=== PATIENT | female | born 1995 | race Caucasian/White ===

== ENCOUNTER 2022-10-23 13:22 | Inpatient (IN) ==
[2022-10-23] MEDS ORDERED: MEPERIDINE 50 MG/1 ML VIAL IV PRN (13:54)
[2022-10-23] MEDS ORDERED: BUTORPHANOL 2 MG/ML VIAL IV PRN (13:54)
[2022-10-23] MEDS ORDERED: TRANEXAMIC ACID 1,000 MG in SODIUM CHLORIDE 0.9% 100 ML IV PRN (13:54)
[2022-10-23] MEDS ORDERED: miSOPROStoL 200 MCG TABLET RECTAL PRN (13:54)
[2022-10-23] MEDS ORDERED: OXYTOCIN/LR 20 UNIT/1,000 ML BAG IV ONE ×3 (13:54→22:33)
[2022-10-23] MEDS ORDERED: CARBOPROST TROMETHAMINE 250 MCG/ML AMP IM PRN (13:54)
[2022-10-23] MEDS ORDERED: METHYLERGONOVINE 0.2 MG/1 ML AMP IM PRN (13:54)
[2022-10-23] MEDS ORDERED: ONDANSETRON 4 MG/2 ML VIAL IV PRN (13:54)
[2022-10-23] MEDS ORDERED: CITRIC ACID/SODIUM CITRATE 30 ML UDCUP PO ONE (13:56)
[2022-10-23] MEDS ORDERED: FAMOTIDINE 20 MG/2 ML VIAL IV ONE (13:56)
[2022-10-23] MEDS ORDERED: ONDANSETRON 4 MG/2 ML VIAL IV ONE (13:56)
[2022-10-23] MEDS ORDERED: NALOXONE 0.4 MG/ML VIAL IV PRN (13:56)
[2022-10-23] MEDS ORDERED: diphenhydrAMINE 50 MG/1 ML VIAL IV PRN ×2 (13:56)
[2022-10-23] MEDS ORDERED: ePHEDrine 50 MG/ML VIAL IV PRN (13:56)
[2022-10-23] MEDS ORDERED: OXYTOCIN/LR 20 UNIT/1,000 ML BAG IV SCH (14:00)
[2022-10-23] MEDS ORDERED: fentaNYL 2 MCG/ROPIV 0.2% EPID 100 ML EPIDURAL SCH (14:00)
[2022-10-23 14:09] LABS: Basophils % 0.2 % (0.0-0.8); Eosinophils # 0.1 10*3/uL (0.0-0.87); Hemoglobin 11.7 GM/DL (12.0-16.0); Immature Granulocytes % 0.7 %; Immature Granulocytes Absolute 0.08 #; Lymphocytes # 1.8 10*3/uL (1.4-4.0); Lymphocytes % 16.1 % (21.3-54.2); Mean Corpuscular HGB Conc 34.4 GM/DL (32-36); Mean Corpuscular Volume 80.2 FL (87-102); Mean Platelet Volume 11.6 FL (9.6-12.0); Monocytes # 0.6 10*3/uL (0.11-0.8); Platelet Count 258 T/CUMM (130-400); Red Blood Count 4.24 MC/CUMM (3.8-5.5); Red Cell Distribution Width 13.5 % (9.3-17.3); White Blood Count 11.4 T/CUMM (4-12)
[2022-10-23 14:34] LABS: Albumin 2.8 G/DL (3.4-5.0); Bilirubin,Total 0.5 MG/DL (0.20-1.00); Calcium 8.8 MG/DL (8.5-10.1); Osmolality,Calculated 269.8 MOS/KG (273-304); Potassium 4.1 MMOL/L (3.5-5.1); Total Protein 7.1 G/DL (6.4-8.2)
[2022-10-23] MEDS: LACTATED RINGERS 1,000 ML IV SCH ×2 (14:34→16:34)
[2022-10-23 15:49] LABS: Bacteria,Urine Occasional /HPF (Few); Mucus,Urine Occasional /LPF (Occasional); Protein,Urine Negative (Negative); RBC,Urine <1 /HPF (0-4); Squamous Epithelial Cell,Urine Occasional /HPF (0-10); Urine Appearance Clear (Clear); Urine Color Light Yellow (Yellow); Urine Specific Gravity 1.015 (1.001-1.035)
[2022-10-23 15:50] LABS: Bilirubin,Urine Negative (Negative); Blood, Urine Negative (Negative); Glucose,Urine (UA) Negative (Negative); Ketones,Urine Negative (Negative); Nitrite,Urine Negative (Negative); Urine Urobilinogen 0.2 eU/dL (<2.0)
[2022-10-23] MEDS ORDERED: SODIUM CHLORIDE 0.9% 0 ML IV ONE (18:48)
[2022-10-23] MEDS ORDERED: TRANEXAMIC ACID 1,000 MG/10 ML VIAL ONE (18:48)
[2022-10-23] MEDS ORDERED: miSOPROStoL 200 MCG TABLET ONE (18:48)
[2022-10-23] MEDS ORDERED: CARBOPROST TROMETHAMINE 250 MCG/ML AMP IM ONE (18:49)
[2022-10-23] MEDS ORDERED: METHYLERGONOVINE 0.2 MG/1 ML AMP ONE (18:49)
[2022-10-23 19:20] LABS: Cord Arterial Blood HCO3 19.5 MMOL/L
[2022-10-23 19:23] LABS: Cord Venous Blood HCO3 22.3 MMOL/L; Cord Venous Blood PCO2 44.5 MMHG; Cord Venous Blood PO2 26.3
[2022-10-23] MEDS ORDERED: MEASLES/MUMPS/RUBELLA VACCINE 0.5 ML VIAL SUBCUT ONE (22:33)
[2022-10-23] MEDS ORDERED: WITCH HAZEL PADS 100/JAR TOP PRN (22:33)
[2022-10-23] MEDS ORDERED: LANOLIN 50% CREAM 0.3 OZ TUBE TOP PRN (22:33)
[2022-10-23] MEDS ORDERED: BISACODYL 10 MG SUPP RECTAL PRN (22:33)
[2022-10-23] MEDS ORDERED: oxyCODONE/ACETAMINOPHEN 5-325 MG TABLET PO PRN ×2 (22:33)
[2022-10-23] MEDS ORDERED: RHO(D) IMMUNE GLOBULIN 300 MCG SYRINGE IM ONE (22:33)
[2022-10-23] MEDS ORDERED: HYDROCORTISONE 2.5% RECTAL CREAM 30 GM TUBE TOP PRN (22:33)
[2022-10-23] MEDS ORDERED: ACETAMINOPHEN 325 MG TABLET PO PRN (22:33)
[2022-10-23] MEDS ORDERED: DIPH/TET/ACEL PERT BOOSTER VACCINE 0.5 ML VIAL IM ONE (22:33)
[2022-10-23] MEDS ORDERED: BENZOCAINE 20%/MENTHOL 0.5% SPRAY 56 GM CAN TOP PRN (22:33)
[2022-10-23] MEDS: DOCUSATE SODIUM 100 MG CAPSULE PO SCH (23:00)
[2022-10-24] MEDS: IBUPROFEN 800 MG TABLET PO PRN ×2 (02:08→14:48)
[2022-10-24 05:29] LABS: Basophils % 0.2 % (0.0-0.8); Eosinophils # 0.1 10*3/uL (0.0-0.87); Eosinophils % 0.5 % (0.00-10.9); Hemoglobin 10.8 GM/DL (12.0-16.0); Immature Granulocytes % 0.8 %; Immature Granulocytes Absolute 0.14 #; Lymphocytes # 2.5 10*3/uL (1.4-4.0); Lymphocytes % 14.4 % (21.3-54.2); Mean Corpuscular HGB Conc 32.7 GM/DL (32-36); Mean Corpuscular Volume 82.3 FL (87-102); Mean Platelet Volume 12.4 FL (9.6-12.0); Monocytes # 1.1 10*3/uL (0.11-0.8); Monocytes % 6.5 % (1.7-12.7); Neutrophils % 77.6 % (38.7-73.9); Platelet Count 254 T/CUMM (130-400); Red Blood Count 4.01 MC/CUMM (3.8-5.5); Red Cell Distribution Width 13.3 % (9.3-17.3); White Blood Count 17.2 T/CUMM (4-12)
[2022-10-24] MEDS: DOCUSATE SODIUM 100 MG CAPSULE PO SCH ×2 (08:52→22:15)
[2022-10-25 07:27] VITALS: BP 143/82
[2022-10-25] MEDS: DOCUSATE SODIUM 100 MG CAPSULE PO SCH (08:54)
== END 2022-10-25 10:05 | disposition home or self-care (01) | DRG 807 ==
LOC: N.LDOUT 13:22 → N.LD 13:23 → N.OB 22:20
PROVIDERS: ADMIT Obstetrics & Gynecology; ATTEND Obstetrics & Gynecology

== ENCOUNTER 2022-12-06 09:56 | Observation (INO) ==
[2022-12-06] MEDS ORDERED: ONDANSETRON 4 MG/2 ML VIAL IV STA (10:21)
[2022-12-06] MEDS ORDERED: SODIUM CHLORIDE 0.9% 1,000 ML IV STA (10:21)
[2022-12-06 10:34] LABS: Basophils % 0.2 % (0.0-0.8); Eosinophils # 0.2 10*3/uL (0.0-0.87); Eosinophils % 1.5 % (0.00-10.9); Hematocrit 37.9 VOL% (35.7-47.0); Hemoglobin 12.5 GM/DL (12.0-16.0); Immature Granulocytes % 0.3 %; Immature Granulocytes Absolute 0.03 #; Lymphocytes # 1.4 10*3/uL (1.4-4.0); Lymphocytes % 12.8 % (21.3-54.2); Mean Corpuscular Volume 79.6 FL (87-102); Mean Platelet Volume 10.2 FL (9.6-12.0); Monocytes # 0.6 10*3/uL (0.11-0.8); Monocytes % 5.6 % (1.7-12.7); Neutrophils % 79.6 % (38.7-73.9); Platelet Count 237 T/CUMM (130-400); Red Blood Count 4.76 MC/CUMM (3.8-5.5); Red Cell Distribution Width 14.9 % (9.3-17.3); White Blood Count 10.5 T/CUMM (4-12)
[2022-12-06 10:53] LABS: Albumin 3.9 G/DL (3.4-5.0); Bilirubin,Total 2.1 MG/DL (0.20-1.00); Calcium 8.6 MG/DL (8.5-10.1); Osmolality,Calculated 279.3 MOS/KG (273-304); Potassium 4.1 MMOL/L (3.5-5.1); Total Protein 7.3 G/DL (6.4-8.2)
[2022-12-06 11:22] LABS: Bacteria,Urine Occasional /HPF (Few); Bilirubin,Urine Negative (Negative); Blood, Urine Negative (Negative); Glucose,Urine (UA) Negative (Negative); Ketones,Urine Negative (Negative); Mucus,Urine Occasional /LPF (Occasional); Nitrite,Urine Negative (Negative); Protein,Urine Negative (Negative); RBC,Urine 2 /HPF (0-4); Squamous Epithelial Cell,Urine Occasional /HPF (0-10); Urine Appearance Clear (Clear); Urine Color Yellow (Yellow); Urine Urobilinogen 0.2 eU/dL (<2.0)
[2022-12-06] MEDS ORDERED: ONDANSETRON 4 MG/2 ML VIAL IV PRN (13:32)
[2022-12-06] MEDS ORDERED: ACETAMINOPHEN 325 MG TABLET PO PRN (13:32)
[2022-12-06] MEDS ORDERED: PANTOPRAZOLE 40 MG TABLET PO ONE (13:52)
[2022-12-06] MEDS: LEVOFLOXACIN INJ 750 MG/150 ML PREMIX IV SCH (14:00)
[2022-12-06] MEDS ORDERED: KETOROLAC 30 MG/1 ML VIAL IV PRN (14:11)
[2022-12-06] MEDS ORDERED: HYDROmorphone 1 MG/1 ML SYRINGE IV PRN ×2 (14:11)
[2022-12-06] MEDS ORDERED: diphenhydrAMINE CAP 25 MG CAPSULE PO PRN (15:52)
[2022-12-06] MEDS: LACTATED RINGERS 1,000 ML IV SCH (16:15)
[2022-12-07 05:44] LABS: Basophils % 0.3 % (0.0-0.8); Eosinophils # 0.5 10*3/uL (0.0-0.87); Eosinophils % 6.7 % (0.00-10.9); Hematocrit 34.7 VOL% (35.7-47.0); Hemoglobin 11.6 GM/DL (12.0-16.0); INR 0.9; Immature Granulocytes % 0.3 %; Immature Granulocytes Absolute 0.02 #; Lymphocytes # 1.9 10*3/uL (1.4-4.0); Lymphocytes % 27.3 % (21.3-54.2); Mean Corpuscular HGB Conc 33.4 GM/DL (32-36); Mean Platelet Volume 11.1 FL (9.6-12.0); Monocytes # 0.4 10*3/uL (0.11-0.8); Monocytes % 5.5 % (1.7-12.7); Neutrophils % 59.9 % (38.7-73.9); PT Patient Result 10.3 SECS (10.1-12.1); Platelet Count 228 T/CUMM (130-400); Red Blood Count 4.34 MC/CUMM (3.8-5.5); White Blood Count 6.9 T/CUMM (4-12)
[2022-12-07 05:59] LABS: Albumin 3.4 G/DL (3.4-5.0); Bilirubin,Total 0.8 MG/DL (0.20-1.00); Calcium 9.1 MG/DL (8.5-10.1); Osmolality,Calculated 278.3 MOS/KG (273-304); Total Protein 6.7 G/DL (6.4-8.2)
[2022-12-07] MEDS ORDERED: PANTOPRAZOLE 40 MG TABLET PO SCH (09:00)
[2022-12-07] MEDS ORDERED: TISSUE ADHESIVE 1 EACH APPLICATOR TOP ONE (12:18)
[2022-12-07] MEDS ORDERED: BUPIVACAINE MPF 0.25% 10 ML VIAL ONE (12:18)
[2022-12-07] MEDS ORDERED: LIDOCAINE 1%/EPI INJ 20 ML VIAL ONE (12:19)
[2022-12-07] MEDS ORDERED: ROCURONIUM 50 MG/5 ML VIAL IV ONE (12:20)
[2022-12-07] MEDS ORDERED: SUCCINYLCHOLINE 200 MG/10 ML VIAL ONE (12:20)
[2022-12-07] MEDS ORDERED: LIDOCAINE 2% 5 ML VIAL ONE (12:20)
[2022-12-07] MEDS ORDERED: propofoL 200 MG/20 ML VIAL IV ONE (12:20)
[2022-12-07] MEDS ORDERED: fentaNYL 100 MCG/2 ML VIAL ONE ×2 (12:21→12:51)
[2022-12-07] MEDS ORDERED: MIDAZOLAM 2 MG/2 ML VIAL ONE (12:21)
[2022-12-07] MEDS ORDERED: LACTATED RINGERS 1,000 ML IV SCH (12:30)
[2022-12-07] MEDS ORDERED: ONDANSETRON 4 MG/2 ML VIAL ONE ×2 (12:55→12:56)
[2022-12-07] MEDS ORDERED: DEXAMETHASONE 4 MG/1 ML VIAL ONE (12:55)
[2022-12-07] MEDS ORDERED: SEVOFLURANE 1 UNIT/15 MINUTE INH ONE ×4 (12:56→14:06)
[2022-12-07] MEDS ORDERED: NEOSTIGMINE 10 MG/10 ML VIAL ONE (13:10)
[2022-12-07] MEDS ORDERED: LACTATED RINGERS 1,000 ML IV ONE (13:14)
[2022-12-07 14:45] VITALS: BP 121/73
[2022-12-07] MEDS: LEVOFLOXACIN INJ 750 MG/150 ML PREMIX IV SCH (15:00)
[2022-12-07] MEDS: LACTATED RINGERS 1,000 ML IV SCH (16:30)
== END 2022-12-07 14:30 | disposition home or self-care (01) ==
LOC: N.ED 09:56 → INTOOBSV 13:32 → N.EDINP 13:32 → N.3E 18:09
PROVIDERS: ADMIT Surgery; ATTEND Surgery
PROC: LAPCHOL (2022-12-07 12:34)